=== PATIENT | female | born 1970 | race Asian ===

== ENCOUNTER 2017-09-01 18:28 | Emergency (ER) | payer OTHER ==
[2017-09-01] MEDS ORDERED: FAMOTIDINE 20 MG/2 ML VIAL IV ONE (19:02)
[2017-09-01] MEDS ORDERED: DIPHENHYDRAMINE 50 MG/ML VIAL ONE ×2 (19:02→20:54)
[2017-09-01] MEDS ORDERED: NA CHLORIDE 0.9% 100 ML IV ONE ×2 (19:02→20:54)
[2017-09-01] MEDS ORDERED: METHYLPREDNISOLONE 125 MG INJ ONE (19:02)
[2017-09-01] MEDS ORDERED: EPINEPHRINE/PF 1 MG/ML AMP ONE (20:00)
--- NOTE | 2017-09-01 20:43 | ER ---
Nurse's Notes [facility] Name: Osito Hassan Age: 46 yrs Sex: Female : 1970 Arrival Date: 09/01/2017 Time: 18:29 Bed 28 Private MD: Chasity Degroot Diagnosis: Allergic Reaction Presentation: 09/01 18:36 Presenting complaint: Patient states: allergic reaction started Saturday, hives all over iw body, was prescribed Medrol Dose Riley by Dr. Degroot on Saturday, rash getting worse. Transition of care: patient was not received from another setting of care. Onset: The symptoms/episode began/occurred 2 day(s) ago. Anaphylaxis evaluation, no signs or symptoms of anaphylaxis were noted. Onset of symptoms was August 30, 2017. Risk Assessment: Do you want to hurt yourself or someone else? Patient reports no desire to harm self or others. Initial Sepsis Screen: Does the patient meet any 2 criteria? No. Patient's initial sepsis screen is negative. Does the patient have a suspected source of infection? No. Patient's initial sepsis screen is negative. Care prior to arrival: None. 18:36 Method Of Arrival: Ambulatory iw 18:36 Acuity: MICHAEL 3 iw Historical: - Allergies: 18:40 NKA; iw - Home Meds: 18:40 None [Active]; iw - PMHx: 18:40 None; iw - PSHx: 18:40 Tubal ligation; iw - Immunization history:: Flu vaccine status is unknown. - Ebola Screening: : Patient negative for fever greater than or equal to 101.5 degrees Fahrenheit, and additional compatible Ebola Virus Disease symptoms Patient denies exposure to infectious person Patient denies travel to an Ebola-affected area in the 21 days before illness onset No symptoms or risks identified at this time. - Social history:: Smoking status: Patient/guardian denies using tobacco, Patient/guardian denies using alcohol, street drugs, IV drugs. Screenin:29 Abuse screen: Denies threats or abuse. Denies injuries from another. Nutritional mg2 screening: No deficits noted. Tuberculosis screening: No symptoms or risk factors identified. Fall Risk IV access (20 points). Assessment: 19:27 General: Appears in no apparent distress. uncomfortable, Behavior is calm, cooperative. mg2 Pain: Denies pain. Neuro: Level of Consciousness is awake, alert, obeys commands, Oriented to person, place, time, situation. Cardiovascular: Capillary refill < 3 seconds Patient's skin is warm and dry. Respiratory: Airway is patent Respiratory effort is even, unlabored, Respiratory pattern is regular, symmetrical. GI: No signs and/or symptoms were reported involving the gastrointestinal system. : No signs and/or symptoms were reported regarding the genitourinary system. EENT: No signs and/or symptoms were reported regarding the EENT system. Derm: Rash noted that is red, raised, on whole body. Musculoskeletal: No signs and/or symptoms reported regarding the musculoskeletal system. 19:55 Reassessment: Patient appears in no apparent distress at this time. Patient and/or mg2 family updated on plan of care and expected duration. Pain level reassessed. Patient is alert, oriented x 3, equal unlabored respirations, skin warm/dry/pink. Respiratory: Breath sounds are clear. 20:56 Reassessment: patient is for discharge but still with ongoing medicine on flow. mg2 Vital Signs: 18:39 BP 104 / 73; Pulse 99; Resp 18 S; Temp 98.3; Pulse Ox 99% on R/A; Weight 58.97 kg; iw Height 4 ft. 11 in. (149.86 cm); Pain 5/10; 19:55 BP 107 / 76; Pulse 91; Resp 18; Pulse Ox 98% on R/A; Pain 0/10; mg2 18:39 Body Mass Index 26.26 (58.97 kg, 149.86 cm) iw ED Course: 18:29 Patient arrived in ED. rg4 18:30 Chasity Degroot MD is Private Physician. rg4 18:39 Triage completed. iw 18:43 Blaine Edwards PA is PHCP. jr8 18:43 Isaac Arnold MD is Attending Physician. jr8 18:53 Onur Amador RN is Primary Nurse. mg2 19:07 Inserted saline lock: 20 gauge in right hand, using aseptic technique. mg2 19:28 Patient has correct armband on for positive identification. Placed in gown. Bed in low mg2 position. Call light in reach. Side rails up X 1. Pulse ox on. NIBP on. Door closed. Warm blanket given. 19:29 No provider procedures requiring assistance completed. mg2 19:29 Arm band placed on. mg2 20:42 Chasity Degroot MD is Referral Physician. jr8 21:11 IV discontinued, intact, bleeding controlled, No redness/swelling at site. Pressure mg2 dressing applied. Administered Medications: 19:06 Drug: SOLU-Medrol 125 mg Route: IVP; Site: right hand; mg2 19:54 Follow up: Response: No adverse reaction; Marked relief of symptoms mg2 19:06 Drug: Benadryl 25 mg Route: IVP; Site: right hand; mg2 19:54 Follow up: Response: No adverse reaction; Marked relief of symptoms mg2 19:07 Drug: Pepcid 20 mg Route: IVP; Site: right hand; mg2 19:54 Follow up: Response: No adverse reaction; allergy improved mg2 20:01 Drug: EPINEPHrine 1mg/mL 1:1,000 0.5 mg Route: IM; Site: right deltoid; mg2 21:12 Follow up: Response: No adverse reaction; Marked relief of symptoms mg2 20:54 Drug: Benadryl 25 mg Route: IVP; Site: right hand; mg2 21:11 Follow up: Response: No adverse reaction; Medication administered at discharge. mg2 Intake: Outcome: 20:43 Discharge ordered by MD. jr8 21:11 Discharged to home via wheelchair, with friend. mg2 21:11 Condition: stable 21:11 Discharge instructions given to patient, friend, Instructed on discharge instructions, follow up and referral plans. medication usage, Demonstrated understanding of instructions, follow-up care, medications, Prescriptions given X 2. 21:12 Patient left the ED. mg2 Signatures: Taryn Delgado RN RN iw Blaine Edwards PA PA jr8 Kari Crawley 4 Onur Amador RN RN mg2 Corrections: (The following items were deleted from the chart) 18:42 18:39 Pulse 99bpm; Resp 18bpm; Spontaneous; Pulse Ox 99% RA; Temp 98.3F; 58.97 kg; iw Height 4 ft. 11 in.; BMI: 26.2; Pain 5/10; iw
--- NOTE | 2017-09-01 20:44 | EDPHYS ---
Physician Documentation [facility] Name: Osito Hassan Age: 46 yrs Sex: Female : 1970 Arrival Date: 09/01/2017 Time: 18:29 Bed 28 Private MD: Chasity Degroot ED Physician Isaac Arnold HPI: 09/01 18:53 This 46 yrs old Female presents to ER via Ambulatory with complaints of Allergic jr8 Reaction. 18:53 Onset: The symptoms/episode began/occurred acutely, 2 day(s) ago. Associated signs and jr8 symptoms: Pertinent positives: hives, nausea. Possible causes: The patient has no known obvious cause for the symptoms. At home the patient or guardian has treated the symptoms with Benadryl, steroids. Severity of symptoms: At their worst the symptoms were moderate in the emergency department the symptoms are unchanged. The patient has not experienced similar symptoms in the past. The patient has been recently seen by a physician:. saw pcp for allergic reaction this past Saturday. Has been on steroids and benadryl and feels that it may be getting worse. Unable to determine cause of rash . Historical: - Allergies: 18:40 NKA; iw - Home Meds: 18:40 None [Active]; iw - PMHx: 18:40 None; iw - PSHx: 18:40 Tubal ligation; iw - Immunization history:: Flu vaccine status is unknown. - Ebola Screening: : Patient negative for fever greater than or equal to 101.5 degrees Fahrenheit, and additional compatible Ebola Virus Disease symptoms Patient denies exposure to infectious person Patient denies travel to an Ebola-affected area in the 21 days before illness onset No symptoms or risks identified at this time. - Social history:: Smoking status: Patient/guardian denies using tobacco, Patient/guardian denies using alcohol, street drugs, IV drugs. ROS: 18:53 Eyes: Negative for injury, pain, redness, and discharge, ENT: Negative for injury, jr8 pain, and discharge, Neck: Negative for injury, pain, and swelling, Cardiovascular: Negative for chest pain, palpitations, and edema, Respiratory: Negative for shortness of breath, cough, wheezing, and pleuritic chest pain, Abdomen/GI: Negative for abdominal pain, vomiting, diarrhea, and constipation. Positive for nausea Back: Negative for injury and pain, MS/Extremity: Negative for injury and deformity, Neuro: Negative for headache, weakness, numbness, tingling, and seizure. 18:53 Skin: Positive for rash, diffusely. Exam: 18:53 Eyes: Pupils equal round and reactive to light, extra-ocular motions intact. Lids and jr8 lashes normal. Conjunctiva and sclera are non-icteric and not injected. Cornea within normal limits. Periorbital areas with no swelling, redness, or edema. ENT: Nares patent. No nasal discharge, no septal abnormalities noted. Tympanic membranes are normal and external auditory canals are clear. Oropharynx with no redness, swelling, or masses, exudates, or evidence of obstruction, uvula midline. Mucous membranes moist. Neck: Trachea midline, no thyromegaly or masses palpated, and no cervical lymphadenopathy. Supple, full range of motion without nuchal rigidity, or vertebral point tenderness. No Meningismus. Cardiovascular: Regular rate and rhythm with a normal S1 and S2. No gallops, murmurs, or rubs. Normal PMI, no JVD. No pulse deficits. Respiratory: Lungs have equal breath sounds bilaterally, clear to auscultation and percussion. No rales, rhonchi or wheezes noted. No increased work of breathing, no retractions or nasal flaring. Abdomen/GI: Soft, non-tender, with normal bowel sounds. No distension or tympany. No guarding or rebound. No evidence of tenderness throughout. Back: No spinal tenderness. No costovertebral tenderness. Full range of motion. MS/ Extremity: Pulses equal, no cyanosis. Neurovascular intact. Full, normal range of motion. Neuro: Awake and alert, GCS 15, oriented to person, place, time, and situation. Cranial nerves II-XII grossly intact. Motor strength 5/5 in all extremities. Sensory grossly intact. Cerebellar exam normal. Normal gait. 18:53 Skin: rash a moderate rash is noted, rash can be described as urticarial, and is diffusely located. Vital Signs: 18:39 BP 104 / 73; Pulse 99; Resp 18 S; Temp 98.3; Pulse Ox 99% on R/A; Weight 58.97 kg; iw Height 4 ft. 11 in. (149.86 cm); Pain 5/10; 19:55 BP 107 / 76; Pulse 91; Resp 18; Pulse Ox 98% on R/A; Pain 0/10; mg2 18:39 Body Mass Index 26.26 (58.97 kg, 149.86 cm) iw MDM: 18:44 Patient medically screened. [facility] 19:55 Data reviewed: vital signs, nurses notes. Data interpreted: Pulse oximetry: on room air jr8 is 99 %. Interpretation: normal. Counseling: I had a detailed discussion with the patient and/or guardian regarding: the historical points, exam findings, and any diagnostic results supporting the discharge/admit diagnosis, the need for outpatient follow up, a family practitioner, to return to the emergency department if symptoms worsen or persist or if there are any questions or concerns that arise at home. ED course: Patient with improvement since medication administration but still has a fare amount of rash present and still itching. Will try epinephrine to help with continued allergic response. Patient will be monitored for a while afterwards . 20:42 ED course: Patients skin looking much better. Will switch up steroid and add pepcid . [facility] 09/01 18:50 Order name: IV; Complete Time: 19:06 jr8 Administered Medications: 19:06 Drug: SOLU-Medrol 125 mg Route: IVP; Site: right hand; mg2 19:54 Follow up: Response: No adverse reaction; Marked relief of symptoms mg2 19:06 Drug: Benadryl 25 mg Route: IVP; Site: right hand; mg2 19:54 Follow up: Response: No adverse reaction; Marked relief of symptoms mg2 19:07 Drug: Pepcid 20 mg Route: IVP; Site: right hand; mg2 19:54 Follow up: Response: No adverse reaction; allergy improved mg2 20:01 Drug: EPINEPHrine 1mg/mL 1:1,000 0.5 mg Route: IM; Site: right deltoid; mg2 21:12 Follow up: Response: No adverse reaction; Marked relief of symptoms mg2 20:54 Drug: Benadryl 25 mg Route: IVP; Site: right hand; mg2 21:11 Follow up: Response: No adverse reaction; Medication administered at discharge. mg2 Disposition: 09/02 15:25 Co-signature as Attending Physician, Isaac Arnold MD I agree with the assessment and [facility] plan of care. Disposition: 09/01/17 20:43 Discharged to Home. Impression: Allergic Reaction . - Condition is Stable. - Discharge Instructions: Anaphylactic Reaction, Adult. - Prescriptions for Pepcid 20 mg Oral Tablet - take 1 tablet by ORAL route every 12 hours for 5 days; 10 tablet. Prednisone 20 mg Oral Tablet - take 3 tablets by ORAL route once daily for 3 days then 2 tablets once a day for 3 days, then 1 tablet once a day for 3 days; 18 tablet. - Medication Reconciliation Form, Thank You Letter, Antibiotic Education, Prescription Opioid Use, Work release form form. - Follow up: Chasity Degroot MD; When: 48 Hours; Reason: Recheck today's complaints, Continuance of care, Re-evaluation by your physician. - Problem is new. - Symptoms have improved. - Notes: To use Benadryl 25 mg as dose on package while itching Signatures: Isaac Arnold MD MD cha Williams, Irene, RN RN iw Blaine Edwards PA PA jr8 Onur Amador RN RN mg2 Corrections: (The following items were deleted from the chart) 09/01 21:12 20:43 09/01/2017 20:43 Discharged to Home. Impression: Allergic Reaction . Condition is mg2 Stable. Forms are Medication Reconciliation Form, Thank You Letter, Antibiotic Education, Prescription Opioid Use. Follow up: Chasity Degroot; When: 48 Hours; Reason: Recheck today's complaints, Continuance of care, Re-evaluation by your physician. Problem is new. Symptoms have improved. jr8
== END 2017-09-01 21:12 | disposition home or self-care (01) ==
LOC: ER 18:28
DX: R21 Rash and other nonspecific skin eruption (principal)
CPT/HCPCS: 96372; 96374; 96375; 99284; J0171; J2930

== ENCOUNTER 2018-07-15 09:36 | Observation (INO) | payer OTHER ==
[2018-07-15] MEDS ORDERED: MORPHINE 2 MG/ML SYR ONE (10:22)
[2018-07-15] MEDS ORDERED: FAMOTIDINE 20 MG/2 ML VIAL IV ONE (10:22)
[2018-07-15] MEDS ORDERED: NA CHLORIDE 0.9% 1,000 ML ONE (10:22)
[2018-07-15] MEDS ORDERED: ONDANSETRON 4 MG/2 ML VIAL ONE ×2 (10:22→13:29)
[2018-07-15 10:30] LABS: Absolute Lymphocytes (CBC) 0.7 K/uL (0.7-4.9); Absolute Monocytes 0.5 K/uL (0.1-1.3); Absolute Neutrophil 8.9 K/uL (1.8-8.0); Basophils % 0.2 % (0-1.3); Eosinophils % 0.8 % (0-4.4); Hematocrit 38.4 % (36.0-45.0); MPV 7.9 fL (7.6-11.3); Monocytes % 5.2 % (3.3-12.3); RBC Red Blood Cell Count 4.93 M/uL (3.86-4.86)
--- NOTE | 2018-07-15 10:31 | RAD REPORT ---
EXAM DESCRIPTION: US - Abdomen Exam Limited - 07/15/2018 10:26 am CLINICAL HISTORY: ABD PAIN COMPARISON: No comparisons FINDINGS: The gallbladder demonstrates a prominent shadowing gallstone in the gallbladder neck. No p ericholecystic fluid or gallbladder wall thickening. The common bile duct is normal measuring 3 mm. The liver demonstrates no findings of intrahepatic biliary dilatation. IMPRESSION: Cholelithiasis.
--- NOTE | 2018-07-15 10:46 | RAD REPORT ---
EXAM DESCRIPTION: RAD - Chest Single View - 07/15/2018 10:40 am CLINICAL HISTORY: ABDOMINAL DISTENTION Chest pain. COMPARISON: No comparisons FINDINGS: Portable technique limits examination quality. The lungs are grossly clear. The heart is normal in size. No displaced fractures. IMPRESSION: No acute intrathoracic process suspected.
[2018-07-15 10:59] LABS: Albumin 3.7 g/dL (3.4-5.0); Bilirubin Direct 0.1 mg/dL (0-0.2); Bilirubin Total 0.5 mg/dL (0.2-1.0); Potassium 4.2 mmol/L (3.5-5.1); Protein, Total 7.7 g/dL (6.4-8.2)
[2018-07-15 11:08] LABS: Platelet Estimate ADEQ; Urine White Blood Cell Casts OK
[2018-07-15 11:09] LABS: Blood Morphology Comment NOT SEEN (NOT SEEN)
--- NOTE | 2018-07-15 11:10 | ER ---
Nurse's Notes [facility] Name: Osito Hassan Age: 47 yrs Sex: Female : 1970 Arrival Date: 07/15/2018 Time: 09:38 Bed 19 Private MD: Chasity Degroot Diagnosis: Abdominal tenderness;Cholelithiasis;Cholecystitis Presentation: 07/15 09:45 Presenting complaint: Patient states: i started having this abdominal pain (epigastric hj area) since yesterday, i feel like im bloated, reports nausea, denies vomiting; denies fever and chills; denies fever;. Transition of care: patient was not received from another setting of care. Onset of symptoms was July 15, 2018. Risk Assessment: Do you want to hurt yourself or someone else? Patient reports no desire to harm self or others. Initial Sepsis Screen: Does the patient meet any 2 criteria? No. Patient's initial sepsis screen is negative. Does the patient have a suspected source of infection? No. Patient's initial sepsis screen is negative. Care prior to arrival: None. 09:45 Method Of Arrival: Ambulatory 09:45 Acuity: MICHAEL 3 hj Triage Assessment: 09:45 General: Appears in no apparent distress. uncomfortable, Behavior is calm, cooperative, hj appropriate for age. Pain: Complains of pain in abdomen. GI: Reports upper abdominal pain, nausea. 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 - Social history:: Smoking status: Patient/guardian denies using tobacco, Patient/guardian denies using alcohol. - Ebola Screening: : Patient negative for fever greater than or equal to 101.5 degrees Fahrenheit, and additional compatible Ebola Virus Disease symptoms Patient denies exposure to infectious person Patient denies travel to an Ebola-affected area in the 21 days before illness onset. - Family history:: not pertinent. Screenin:52 Abuse screen: Denies threats or abuse. Denies injuries from another. Nutritional hj screening: No deficits noted. Tuberculosis screening: No symptoms or risk factors identified. Fall Risk None identified. Assessment: 09:45 GI: Bowel sounds present X 4 quads. Abd is soft Abdomen is tender to palpation. hj 09:45 Reassessment: see triage for assessment;. hj 10:00 Reassessment: Patient and/or family updated on plan of care and expected duration. Pain hj level reassessed. Patient is alert, oriented x 3, equal unlabored respirations, skin warm/dry/pink. wheeled to CT;. 10:20 Reassessment: back from CT;. hj 11:54 Reassessment: Patient and/or family updated on plan of care and expected duration. Pain hj level reassessed. Patient is alert, oriented x 3, equal unlabored respirations, skin warm/dry/pink. wheeled to OR;. Vital Signs: 09:51 BP 114 / 74; Pulse 63; Resp 18; Temp 98.7(O); Pulse Ox 100% on R/A; Weight 58.97 kg; hj Height 4 ft. 11 in. (149.86 cm); Pain 10/10; 10:33 BP 99 / 78; Pulse 65; Resp 18; Pulse Ox 99% on R/A; hj 11:54 BP 100 / 75; Pulse 66; Resp 18; Pulse Ox 100% on R/A; hj 09:51 Body Mass Index 26.26 (58.97 kg, 149.86 cm) hj ED Course: 09:38 Patient arrived in ED. mr 09:38 Chasity Degroot MD is Private Physician. mr 09:45 Casey oRdas RN is Primary Nurse. hj 09:45 Arm band placed on right wrist. hj 09:45 Patient has correct armband on for positive identification. Placed in gown. Bed in low hj position. Call light in reach. Side rails up X 1. Adult w/ patient. 09:46 Triage completed. hj 09:50 Isaac Arnold MD is Attending Physician. brielle 10:15 Initial lab(s) drawn, by me, sent to lab. Inserted saline lock: 20 gauge in right kj1 antecubital area, using aseptic technique. 10:27 US Abdomen Limited In Process Unspecified. EDMS 10:37 X-ray completed. Portable x-ray completed in exam room. Patient tolerated procedure jb2 well. 10:42 Chest Single View XRAY In Process Unspecified. EDNV 11:08 Josue Pang MD is Hospitalizing Provider. [facility] 11:55 No provider procedures requiring assistance completed. Patient admitted, IV remains in hj place. intact. Administered Medications: 10:10 Drug: Pepcid 20 mg Route: IVP; Site: right antecubital; hj 10:21 Follow up: Response: No adverse reaction; Pain is decreased hj 10:10 Drug: NS 0.9% 1000 ml Route: IV; Rate: 1 bolus; Site: right antecubital; hj 11:30 Follow up: IV Status: Completed infusion; IV Intake: 1000ml hj 10:10 Drug: morphine 2 mg Route: IVP; Site: right antecubital; hj 10:21 Follow up: Response: No adverse reaction; Pain is decreased hj 10:10 Drug: Zofran 4 mg Route: IVP; Site: right antecubital; hj 10:21 Follow up: Response: No adverse reaction; Pain is decreased; Nausea is decreased hj 11:03 Drug: Zosyn 3.375 grams Route: IVPB; Infused Over: 60 mins; Site: right antecubital; hj 11:54 Follow up: IV Status: Infusion continued upon admission hj 11:55 Not Given (Patient Refused; pt was wheeled to OR): morphine 2 mg IVP once hj Intake: 11:30 IV: 1000ml; Total: 1000ml. Outcome: 11:09 Decision to Hospitalize by Provider. [facility] 11:56 Admitted to OR accompanied by nurse, via wheelchair, room OR/ 208, with chart, Report hj called to AICHA Traore 11:56 Condition: stable 11:56 Instructed on the need for admit, Demonstrated understanding of instructions. 11:56 Patient left the ED. Signatures: Dispatcher [employer] Isaac Uribe MD MD cha Rivera, Tim Marino jb2 Casey Rodas, RN RN Nora Patrick kj1
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
[2018-07-15] MEDS ORDERED: PIPER/TAZO/NS 3.375gm 3.375 GM/100 ML BAG ONE (11:21)
--- NOTE | 2018-07-15 11:32 | RAD REPORT ---
EXAM DESCRIPTION: CTAbdomen Pelvis W Contrast - 07/15/2018 11:18 am CLINICAL HISTORY: Abdominal pain. ABD PAIN COMPARISON: No comparisons TECHNIQUE: Biphasic CT imaging of the abdomen and pelvis was performed with 100 ml non-ionic IV cont rast. All CT scans are performed using dose optimization technique as appropriate and may include automated exposure control or mA/KV adjustment according to patient size. FINDINGS: The lung bases are clear. The liver, spleen, pancreas, adrenal glands and kidneys are within normal limits. Multiple dilated and mildly thickened small bowel loops are seen throughout the abdomen. No free air or abscess The appendix is normal. No evidence of significant lymphadenopathy. No suspicious bony findings. IUD is present in the uterus. IMPRESSION: Multiple thickened mildly dilated small bowel loops are present in the abdomen. This is favored to represent a diffuse nonspecific enteritis. Early mechanical small-bowel obstruction can ornelas ve a similar appearance, however, thus followup imaging would be recommended in 24-48 hours if sympto mology persists or progresses.
[2018-07-15 12:04] LABS: Urine Blood 3+ (NEG); Urine Glucose NEGATIVE (NEG); Urine Protein 2+ (NEG); Urine Specific Gravity >1.030 (1.005-1.030)
[2018-07-15] MEDS ORDERED: ONDANSETRON 4 MG/2 ML VIAL IV PRN ×2 (12:09→14:03)
[2018-07-15] MEDS ORDERED: ACETAMINOPHEN 500 MG TAB PO PRN (12:09)
[2018-07-15] MEDS ORDERED: MORPHINE 2 MG/ML SYR IV PRN (12:09)
[2018-07-15] MEDS ORDERED: Ringers Lactate 1,000 ML IV ONE (12:11)
[2018-07-15] MEDS ORDERED: METOCLOPRAMIDE 10 MG/2mL INJ ONE (12:23)
[2018-07-15] MEDS ORDERED: NA CIT/CITRIC AC 30 ML ORAL UDC ONE (12:23)
[2018-07-15] MEDS ORDERED: ROCURONIUM 50 MG/5 ML VIAL IV ONE (12:25)
[2018-07-15] MEDS ORDERED: FENTANYL CITR 100 MCG/2 ML ONE ×2 (12:25→13:30)
[2018-07-15] MEDS ORDERED: PROPOFOL 200 MG/20 ML VIAL IV ONE (12:25)
[2018-07-15] MEDS ORDERED: MIDAZOLAM HCL 2 MG/2 ML INJ ONE (12:25)
[2018-07-15] MEDS ORDERED: LIDOCAINE 1% MPF 5 ML VIAL ONE (12:25)
[2018-07-15] MEDS ORDERED: SUCCINYLCHOLINE 20 MG/ML (10 ML) IV ONE (13:04)
[2018-07-15] MEDS ORDERED: KETOROLAC 30 MG/ML INJ ONE (13:29)
[2018-07-15] MEDS ORDERED: GLYCOPYRROLATE 0.2 MG/ML SYR ONE (13:29)
[2018-07-15] MEDS ORDERED: NEOSTIGMINE 1 MG/ML -10 ML VIAL ONE (13:29)
--- NOTE | 2018-07-15 13:41 | P.OP ---
Glove Turner And Former: Emmanuel LEVY Preoperative diagnosis: Acute Cholecystitis and Cholelithiasis Postoperative diagnosis: same with adhesions Primary procedure: Lap Awa, AMARILYS Anesthesia: General Estimated blood loss: min Specimen: GB Findings: as above Complications: None Transferred to: Recovery Room Condition: Good
[2018-07-15] MEDS: HYDROMORPHONE HCL 1 MG/ML INJ IV PRN ×3 (14:10→17:09)
[2018-07-15] MEDS: D5 0.45 NS 1,000 ML IV SCH ×2 (15:21→20:09)
--- NOTE | 2018-07-15 15:29 | PREOPHP ---
Date of Admission: 07/15/2018 Chief Complaint: Abdominal pain. History Of Present Illness: The patient is a 47-year-old female, who comes in with acute onset of 24 -hour history of epigastric right upper quadrant abdominal pain, severe after eating yogurt, associat ed with nausea, bloating, belching, and heartburn. No diarrhea. No constipation. No blood in her s tool. She is on her periods. No fever or chills. No sore throat, runny nose, cough, headaches, or dizziness. No chest pain and no vomiting. Review of Systems: Otherwise unremarkable. Past Medical History: Negative. Past Surgical History: Bilateral tubal ligation. Allergies: NO ALLERGIES. Social History: She denies smoking or drinking. Family History: Noncontributory. Physical Examination: Vital Signs: Stable, afebrile. General: Awake, alert, and oriented x3. Head and Neck: No evidence of icterus. Cranial nerves 2 through 12 are grossly within normal limits . No neck masses. No JVD. Throat clear. Neck is supple. Chest: Clear. Heart: S1 and S2. Abdomen: Soft, nondistended. Positive bowel sounds. Positive epigastric right upper quadrant tende rness. No rebound, rigidity, or guarding. Extremities: Adequately perfused. Nontender. Neuro: Nonfocal. Diagnostic Studies: CT of the abdomen and pelvis and ultrasound reviewed. There is a stone stuck in the neck of the gallbladder. The remainder of the anatomy appears normal. White count is within no rmal limits; however there is a left shift. LFTs, amylase, and lipase are within normal. Assessment: A 47-year-old female with acute cholecystitis, cholelithiasis. Plan: Admit, n.p.o., IV fluid, IV antibiotic, to the OR for lap choly, possible open. The patient u nderstands the risks, benefits, and alternatives and agrees to procedure. /MODL Voice ID: [id number]
[2018-07-15] MEDS: PIPER/TAZO/NS 3.375gm 3.375 GM/100 ML BAG IVPB SCH (17:00)
--- NOTE | 2018-07-15 20:31 | OP ---
Date of Procedure: 07/15/2018 Surgeon: Josue Pang MD Wildlife Control Agent: MILDRED Lewis. Preoperative Diagnoses: Acute cholecystitis and cholelithiasis. Postoperative Diagnoses: Acute cholecystitis and cholelithiasis with adhesions. Procedure Performed: Laparoscopic cholecystectomy and lysis of adhesions. Estimated Blood Loss: Minimal. Specimen: Gallbladder. Finding: As above. Anesthesia: General. Complications: None. Disposition: The patient tolerated the procedure in stable condition, taken to the Recovery in good general condition. Procedure In Detail: The patient was brought to the OR and placed in supine position. General anest hesia was begun. The patient prepped and draped in the usual sterile fashion. Marcaine 0.5% was inf iltrated locally. A 15-blade was used to make a 1 cm supraumbilical midline incision. Subcutaneous tissue divided. The fascia was identified and divided. A #1 Vicryl stay suture was placed. Periton eal cavity was entered with sharp and blunt dissection. A 12 mm trocar was placed into the peritonea l cavity under direct vision. Pneumoperitoneum was established and then three 5 mm trocars placed, 1 in the epigastrium just to the right of midline and 2 in the right subcostal region. Laparoscopy re vealed extensive adhesions to the gallbladder as well as in the lower middle and just below the umbil icus, and the lower midline and these were taken down with a LigaSure. The adhesions on the gallblad damon were taken down. The gallbladder was markedly distended and acutely inflamed. This was aspirate d of bile so that we could get better retraction on the fundus and body. The fundus was retracted joseph periorly and then the infundibulum was identified after all the lysis of adhesions and retracted infe rolaterally. Cystic duct and cystic artery were clearly identified with blunt dissection. Clips justus althea. Both structures divided. Cautery was used to remove the gallbladder from the liver bed. Bleed ing on the liver bed was controlled with cautery. The gallbladder was retrieved through the umbilicu s via an EndoCatch bag. Right upper quadrant was irrigated. Effluent was clear. No evidence of ble eding or bile leakage appreciated. Subsequently, all trocars were removed under vision stay sutures were tied to each other to reapproximate the fascial defect. Subcutaneous wounds irrigated. Bleedin g controlled with cautery. 3-0 chromic used to approximate the subcutaneous tissue and close skin. Sterile dressing was applied. The patient was awakened and taken to Recovery in good general conditi on. REYNA/ARCHANA Voice ID: [id number] Report ID: [id number]
[2018-07-15] MEDS ORDERED: FAMOTIDINE 20 MG/2 ML VIAL IV SCH (21:00)
[2018-07-16] MEDS: HYDROCODONE/APAP 7.5/325 MG TAB PO PRN ×2 (00:36→17:00)
[2018-07-16] MEDS: PIPER/TAZO/NS 3.375gm 3.375 GM/100 ML BAG IVPB SCH ×3 (00:37→16:43)
[2018-07-16] MEDS: D5 0.45 NS 1,000 ML IV SCH ×4 (00:37→20:54)
[2018-07-16] MEDS: HYDROMORPHONE HCL 1 MG/ML INJ IV PRN ×4 (02:18→20:55)
[2018-07-16 06:03] LABS: Absolute Lymphocytes (CBC) 1.1 K/uL (0.7-4.9); Absolute Monocytes 0.6 K/uL (0.1-1.3); Absolute Neutrophil 5.3 K/uL (1.8-8.0); Basophils % 0.1 % (0-1.3); Eosinophils % 1.1 % (0-4.4); Hematocrit 30.4 % (36.0-45.0); Lymphocytes % 15.8 % (15.3-44.8); MPV 7.8 fL (7.6-11.3); Monocytes % 8.4 % (3.3-12.3); RBC Red Blood Cell Count 3.87 M/uL (3.86-4.86)
[2018-07-16 06:20] LABS: ALT/SGPT 47 U/L (12-78); AST/SGOT 57 U/L (15-37); Albumin 2.8 g/dL (3.4-5.0); Alkaline Phosphatase 62 U/L (45-117); BUN Blood Urea Nitrogen 7 mg/dL (7-18); Bicarbonate 28 mmol/L (21-32); Bilirubin Direct 0.1 mg/dL (0-0.2); Bilirubin Total 0.4 mg/dL (0.2-1.0); Glucose Level 101 mg/dL (74-106); Lipase 63 U/L (73-393); Potassium 4.1 mmol/L (3.5-5.1); Protein, Total 6.2 g/dL (6.4-8.2); Sodium Level 145 mmol/L (136-145)
--- NOTE | 2018-07-16 14:34 | PN ---
Date of Progress Note: 07/16/2018 Subjective: The patient is awake and alert, complaining of nonspecific diffuse abdominal pain. No n ausea or vomiting. Tolerated a clear liquid, has not ambulated yet. Physical Examination: Her vital signs are stable. She is afebrile. Laboratory Data: Reviewed. White count is 7.1, H and H is 10 and 30, there is slight left shift. C hemistry is reviewed. LFTs are essentially within normal limits. Abdomen is slightly distended. No peritonitis. Minimal incisional tenderness. Assessment: Status post laparoscopic cholecystectomy and lysis of adhesions. Plan: Encouraged patient to ambulate. Parenteral pain management currently. Diet as tolerated. Ho pefully discharge in 24 hours. /MODL Voice ID: [id number] Report ID: [id number]
[2018-07-17] MEDS: PIPER/TAZO/NS 3.375gm 3.375 GM/100 ML BAG IVPB SCH ×2 (00:20→08:08)
[2018-07-17] MEDS: HYDROCODONE/APAP 7.5/325 MG TAB PO PRN ×2 (03:47→08:10)
[2018-07-17] MEDS: D5 0.45 NS 1,000 ML IV SCH (03:48)
[2018-07-17 06:21] LABS: BUN Blood Urea Nitrogen 5 mg/dL (7-18); Bicarbonate 29 mmol/L (21-32); Glucose Level 100 mg/dL (74-106); Magnesium 2.3 mg/dL (1.8-2.4); Phosphorus 2.9 mg/dL (2.5-4.9); Potassium 4.2 mmol/L (3.5-5.1); Sodium Level 142 mmol/L (136-145)
[2018-07-17 09:26] LABS: Absolute Lymphocytes (CBC) 1.1 K/uL (0.7-4.9); Absolute Monocytes 0.6 K/uL (0.1-1.3); Absolute Neutrophil 4.9 K/uL (1.8-8.0); Basophils % 0.2 % (0-1.3); Eosinophils % 1.5 % (0-4.4); Hematocrit 30.7 % (36.0-45.0); MPV 8.6 fL (7.6-11.3); Monocytes % 8.2 % (3.3-12.3); RBC Red Blood Cell Count 3.93 M/uL (3.86-4.86)
--- NOTE | 2018-07-18 04:33 | DS ---
Date of Discharge: 07/17/2018 Admitting Diagnoses: Acute cholecystitis and cholelithiasis, mesenteric adenitis-enteritis. Discharge Diagnoses: Acute cholecystitis and cholelithiasis, mesenteric adenitis-enteritis. Procedures: Laparoscopic cholecystectomy. Hospital Course: The patient is a 47-year-old female who underwent the aforementioned procedure. Po stoperatively, she is tolerating diet, ambulating, pain controlled with p.o. pain medication, and afe brile. Therefore, the patient will be discharged home today. Disposition: Home. Condition: Stable. Discharge Instructions: Resume home medications and diet. Activity as tolerated. No heavy lifting. May shower. Keep wound clean and dry. Keep Steri-Strips on at all times. Follow up in my office in 1 week, call for appointment. Tylenol No. 3 one tablet p.o. q.4 h. p.r.n. pain, Cipro 500 mg p.o. q.12 h., and Flagyl 500 mg p.o. q.6 h. REYNA/ARCHANA Voice ID: [id number] Report ID: [id number]
== END 2018-07-17 12:58 | disposition home or self-care (01) ==
LOC: ER 09:36 → ERHOLD 11:11 → 2ND 11:42
PROVIDERS: ADMIT Surgery; ATTEND Surgery
PROC: 0FT44ZZ Resection of Gallbladder, Percutaneous Endoscopic Approach (ICD-10-PCS; principal; 2018-07-15 13:00)
DX: K80.12 Calculus of gallbladder with acute and chronic cholecystitis without obstruction (principal); K66.0 Peritoneal adhesions (postprocedural) (postinfection); I88.0 Nonspecific mesenteric lymphadenitis; F32.9 Major depressive disorder, single episode, unspecified; F41.9 Anxiety disorder, unspecified; Z79.899 Other long term (current) drug therapy
CPT/HCPCS: 36415; 71045; 74177; 76705; 80048; 80076; 81003; 81025; 83690; 83735; 84100; 85025; 88304; 96361; 96365; 96375; 99285; G0378; J0330; J1170; J2250; J2270; J2405; J2543; J2704; J2710; J2765; J3010; J7030; Q9967